=== PATIENT | female | born 1990 ===

== ENCOUNTER 2020-08-26 21:06 | Inpatient (IN) | payer OTHER ==
[~2020-08-26] VITALS: Ht 160 cm; Wt 63.0 kg
[2020-08-26] MEDS ORDERED: PRENATAL CAPLE1 EAC1 (21:15)
== END 2020-08-28 19:15 | disposition home or self-care (01) | DRG 807 ==
LOC: LDR 21:06 → OB/GYN 21:06
PROVIDERS: ADMIT Obstetrics & Gynecology; ATTEND Obstetrics & Gynecology
PROC: 4A1HXFZ Monitoring of Products of Conception, Cardiac Rhythm, External Approach (ICD-10-PCS; 2020-08-26)
PROC: 10E0XZZ Delivery of Products of Conception, External Approach (ICD-10-PCS; principal; 2020-08-27)
DX: O42.02 Full-term premature rupture of membranes, onset of labor within 24 hours of rupture (principal); Z37.0 Single live birth; Z3A.37 37 weeks gestation of pregnancy; Z20.822 Contact with and (suspected) exposure to COVID-19